=== PATIENT | female | born 1960 | race Caucasian/White ===

== ENCOUNTER 2016-04-24 12:50 | Emergency (ER) | payer OTHER ==
[2016-04-24 13:39] VITALS: BP 116/75; PULSE 92; RESP 16; TEMP 99.4; O2SAT 98
[2016-04-24] MEDS ORDERED: IPRATROPIUM/ALBUTEROL 3 ML DEYVIAL IH ONE (14:08)
--- NOTE | 2016-04-24 14:23 | UCPHY ---
H & P Time Seen by Provider: 04/24/16 13:58 Patient Type: New HPI/ROS: Since Saturday this patient reports increasing cough productive of yellow sputum causing decreased sleep due to the frequent coughing. She also has associated wheezing. She reports that she has had some wheezing since this summer and her primary care physician's thinks that she might have asthma. She has an appointment to see a shipping inspector on May 01. She notes no exacerbating factors for her cough except for mild improvement with albuterol. ROS: No high fevers or chills. She has mild nasal congestion. No facial pressure or throat pain. She reports no heart palpitations or lightheadedness. No belly pain. No vomiting. No leg swelling or pain. 7 point ROS is otherwise negative. Past Medical/Surgical History: Possible reactive airway disease or asthma Smoking Status: Former smoker Physical Exam: General Appearance: Alert, no distress. Eyes: Pupils equal and round no pallor or injection. ENT, Mouth: Mucous membranes moist. Nose: Yellow discharge bilaterally. No sinus tenderness to percussion. Respiratory: Mild wheezing bilaterally. Minimal rhonchi. No rales. No respiratory distress Cardiovascular: Regular rate and rhythm. No murmur gallop rub. No JVD. No calf swelling or tenderness. Neurological: Alert with no focal deficits Skin: Warm and dry, no rashes. Musculoskeletal: Neck is supple nontender. Extremities are symmetrical, full range of motion. Psychiatric: Mood and affect are normal DIFFERENTIAL DIAGNOSIS: After history and physical exam differential diagnosis was considered for acute bronchitis, pneumonia, asthma exacerbation with URI, chronic bronchitis, COPD Constitutional: Initial Vital Signs Temperature (C) 37.4 C 04/24/16 13:36 Heart Rate 92 04/24/16 13:36 Respiratory Rate 16 04/24/16 13:36 Blood Pressure 116/75 04/24/16 13:36 O2 Sat (%) 98 04/24/16 13:36 O2 Delivery Mode Room Air Allergies/Adverse Reactions: No Known Allergies Allergy (Verified 04/24/16 13:39) Home Medications: Medication Instructions Recorded Avalide 150-12.5 mg Tablet 07/22/14 Advair 250/50 (*) 04/24/16 Albuterol 04/24/16 Albuterol Hfa Anes Only [Proair 2 puffs IH Q4 PRN #1 mdi 04/24/16 Hfa Icu (*)] Azithromycin [Zithromax] 250 mg PO DAILY #6 tab 04/24/16 Guaifenesin/Codeine Phosphate 5 - 10 ml PO Q6 PRN #120 ml 04/24/16 [Guaifenesin-Codeine Liquid] Progesterone 04/24/16 predniSONE 40 mg PO DAILY #10 tab 04/24/16 MDM/Departure - MDM Medications Given: Discontinued Medications Albuterol/Ipratropium (Duoneb) 3 ml IH EDNOW ONE Stop: 04/24/16 14:09 Last Admin: 04/24/16 14:19 Dose: 3 ml ED Course/Re-evaluation: Initial peak flow of 250 DuoNeb with increased aeration decreased wheezing cough improved peak flow to 290 I counseled patient regarding her bronchitis/reactive airway disease. Will cover with Zithromax to cover atypicals Prednisone, continue Advair, albuterol - Depart Clinical Impression: Acute bronchitis Qualifiers: Bronchitis organism: unspecified organism Qualifier Code: (J20.9) Acute bronchitis, unspecified Instructions: Acute Bronchitis (ED) Additional Instructions: Diagnosis: Acute bronchitis 2. Reactive airways Plan: Humidifier Albuterol inhaler with spacer for cough, wheeze or shortness of breath Zithromax antibiotic Prednisone as prescribed. Guaifenesin with codeine for cough prevents sleep Continue Advair Return for any significant worsening despite treatment plan Prescriptions: Guaifenesin/Codeine Phosphate [Guaifenesin-Codeine Liquid] 5 - 10 ml PO Q6 PRN # 120 ml PRN Reason: Cough Albuterol Hfa Anes Only [Proair Hfa Icu (*)] 2 puffs IH Q4 PRN #1 mdi PRN Reason: Wheezing Azithromycin [Zithromax] 250 mg PO DAILY #6 tab Referrals: Tyrel Longoria MD [Primary Care Provider] - As per Instructions - PQRS PQRS Measurement: NA
== END 2016-04-24 14:33 | disposition home or self-care (01) ==
LOC: CED 12:50
DX: J20.9 Acute bronchitis, unspecified (principal); Z87.891 Personal history of nicotine dependence
CPT/HCPCS: 99203-PO; G0463-PO